=== PATIENT | male | born 2000 | race Caucasian/White ===

== ENCOUNTER → 2021-04-03 19:45 | Outpatient (CLI) | payer SELFPAY | PROVIDERS: Referring Provider Internal Medicine Critical Care Medicine; Visit Provider Internal Medicine Critical Care Medicine | DX: G47.411 Narcolepsy with cataplexy (principal) | CPT/HCPCS: 95810 ==

== ENCOUNTER → 2021-04-04 01:19 | Outpatient (CLI) | payer SELFPAY ==
[2021-04-04 11:20] LABS: Amphetamine Urine VISTA NEGATIVE (<1000 ng/mL); Barbiturate Urine VISTA NEGATIVE (< 200 ng/mL); Benzodiazepine Urine VISTA NEGATIVE (< 200 ng/mL); Cocaine Urine VISTA NEGATIVE (< 300 ng/mL); Ecstacy Urine VISTA NEGATIVE (< 500 ng/mL); Methadone Urine VISTA NEGATIVE (< 300 ng/mL); PCP Urine VISTA NEGATIVE (< 25 ng/mL); THC Urine VISTA NEGATIVE (< 50 ng/mL); Vista UDS pH Range 7
== END ==
PROVIDERS: Visit Provider Internal Medicine Critical Care Medicine
DX: G47.10 Hypersomnia, unspecified (principal); G47.411 Narcolepsy with cataplexy
CPT/HCPCS: 80307; 95805